=== PATIENT | female | born 1975 ===

== ENCOUNTER → 2024-09-06 | Emergency (ER) | payer OTHER ==
[~2024-09-06] MED LIST: Ondansetron PF 4 MG/2 ML Vial ONE
== END ==
LOC: ERS 12:29
DX: R10.9 Unspecified abdominal pain (principal)
CPT/HCPCS: 74177; 96361; 96374; J2405

== ENCOUNTER 2024-09-28 20:20 | Emergency (ER) | payer SELFPAY ==
[2024-09-28 21:48] LABS: #Basophils 0.03 10x3/uL (0.0-0.2); %Basophils 0.4 % (0.0-1.0); %Eosinophils 2.3 % (0.0-10.0); %Lymphocytes 35.1 % (21.0-51.0); %Monocytes 6.4 % (0.0-10.0); %Neutrophils 55.5 % (42.0-75.0); Hematocrit 35.1 % (36.0-47.0); Hemoglobin 11.5 g/dL (12.0-16.0); Mean Corpuscular HGB CONC 32.8 g/dL (32.0-36.0); Mean Corpuscular Hemoglobin 30.3 pg (27.0-31.0); Mean Corpuscular Volume 92.4 fL (78.0-98.0); Mean Platelet Volume 11.6 fL (7.4-10.4); Platelet Count 196 10x3/uL (130-400); RBC Distribution Width 12.2 % (11.5-14.5)
[2024-09-28 22:15] LABS: Troponin I Less than 0.010 ng/mL (< 0.028)
[2024-09-28 22:16] LABS: ALT (SGPT) 21 U/L (8-55); AST (SGOT) 27 U/L (5-34); Alkaline Phosphatase 111 U/L (40-110); Anion Gap 13 mmol/L (10-20); BUN (Urea Nitrogen) 22 mg/dL (7.0-18.7); Bilirubin, Total 0.1 mg/dL (0.2-1.2); Calc. Creatinine Clearance 0 mL/min (70-130); Calcium 9.1 mg/dL (7.8-10.44); Carbon Dioxide 22 mmol/L (22-29); Chloride 108 mmol/L (98-107); Estimated GFR 87; Globulin 4.3 g/dL (2.4-3.5); Glucose 107 mg/dL (70-105); Potassium 4.4 mmol/L (3.5-5.1); Protein, Total 8.3 g/dL (6.0-8.3); Sodium 139 mmol/L (136-145)
[2024-09-28] MEDS ORDERED: Ketorolac Tromethamine 30 MG (1 mL) VIAL ONE ×2 (22:31→22:34)
[2024-09-28] MEDS ORDERED: Benzonatate 100 MG CAP ONE (22:31)
== END 2024-09-28 23:01 | disposition home or self-care (01) ==
LOC: ERS 20:20
DX: R07.9 Chest pain, unspecified (principal); J06.9 Acute upper respiratory infection, unspecified
CPT/HCPCS: 36415; 71045; 80053; 84484; 85025; 87428; 93005; 96372; J1885